=== PATIENT | male | born 1980 | race Caucasian/White ===

== ENCOUNTER 2016-08-14 04:08 | Emergency (ER) | payer OTHER ==
[2016-08-14] MEDS ORDERED: HYDROCODONE/ACETAMINOPHEN 5/325MG TABLET ONE (04:48)
[2016-08-14] MEDS ORDERED: SULFAMETHOXAZOLE 800 MG/TRIMETHOPRIM 160 MG TABLET ONE (04:48)
[2016-08-14] MEDS ORDERED: CEPHALEXIN 500 MG CAPSULE ONE (04:49)
== END 2016-08-14 05:11 | disposition home or self-care (01) ==
LOC: ED 04:08
DX: L03.114 Cellulitis of left upper limb (principal); F17.210 Nicotine dependence, cigarettes, uncomplicated
CPT/HCPCS: 99283 ×2; A9270 ×3